=== PATIENT | male | born 1935 | race Caucasian/White ===

== ENCOUNTER 2020-11-04 14:57 | Emergency (ER) | payer OTHER ==
[~2020-11-04] VITALS: Ht 177.8 cm; Wt 120.2 kg
--- NOTE | 2020-11-04 11:55 | NUR ---
CARDIOPULMONARY ARREST Laura RODRIGUEZ AND Torito ALVARENGA POWERHOUSE MECHANIC'S ATTENDING
[~2020-11-04 14:57] MED LIST: CALCIUM CHLORIDE 10% 100 MG/ML SYR IVP ONE; EPINEPHrine PFS 0.1 MG/ML SYR IVP ONE; FLUC150T PO; NITR100C1 PO; POTA10TE30 PO; RIVA20TA PO
--- NOTE | 2020-11-04 14:57 | NUR ---
1454---Patient BIBLoc ALS accompanied by [facility] with CPR in progress, transferred to bed 10. CPR continued by [facility] staff. Dr. Bear, RT, and RN are at bedside.
--- NOTE | 2020-11-04 15:20 | NUR ---
85/M BIBA IN CARDIAC ARREST. PER EMS, PATIENT WAS FOUND ON SCENE LYING ON THE GROUND NEXT TO HIS TV WITH AGONAL RESPIRATIONS, STATED PATIENTS HEART RATE BEGAN TO RANDALL DOWN IN WHICH THEY BEGAN TO PACE THE PATIENT AND SHORTLY AFTER PULSES WERE LOST. EMS STATED PATIENT REPORTED NOT FEELING WELL TO FAMILY THIS MORNING AND VOMITED TWICE PRIOR TO EMS ARRIVAL. PATIENT REMAINED PULSELESS UPON ARRIVAL, WAS NOT INTUBATED, IO TO LEFT LOWER LEG WITH IV FLUIDS RUNNING. EMS GAVE TWO ROUNDS OF EPI PRIOR TO ARRIVAL, PATIENT ARRIVED ASYSTOLE. SEE CODE SHEET FOR DETAILS. TIME OF 15:[address] LEE.
--- NOTE | 2020-11-04 15:26 | NUR ---
CALLED [facility], SPOKE TO DISPATCH TO REPORT . AWAITING CALL BACK FROM [facility].
--- NOTE | 2020-11-04 15:43 | NUR ---
CALLED [facility] TO REPORT PATIENT S/W SIMI. PATIENT IS NOT A CANDIDATE FOR [employer] REFERRAL ID #[id number]
--- NOTE | 2020-11-04 15:50 | NUR ---
SPOKE TO JULIO C FROM THE CORONERS OFFICE, NOTIFIED HER ABOUT PATIENTS . STATED SHE WILL BE CALLING BACK IN 30 MINUTES TO ASK IF ANY FAMILY HAS CALLED.
--- NOTE | 2020-11-04 16:00 | NUR ---
ATTEMPTED TO CALL SON MELANY MAYA JR. . NO ANSWER, VOICEMAIL LEFT.
--- NOTE | 2020-11-04 16:13 | NUR ---
RECEIVED CALL BACK FROM JULIO C AT CORONERS OFFICE, NOTIFIED HER WE ATTEMPTED TO CONTACT PATIENTS SON AND LEFT MESSAGE, NUMBER WAS GIVEN. PER JULIO C PATIENT IS CLEARED, CASE #[id number]
--- NOTE | 2020-11-04 16:25 | NUR ---
RECEIVED UPDATED PHONE NUMBER FOR PATIENTS SON FROM CORONERS OFFICE ZULMA MOSLEY JR.
--- NOTE | 2020-11-04 16:27 | NUR ---
PT'S SON ZULMA MELANY ALMAZAN CALLED BACK AND SPOKE WITH DR. LEE. SON NOTIFIED ABOUT PT'S PASSING.
--- NOTE | 2020-11-04 16:28 | NUR ---
SPOKE TO PATIENT'S SON AND PREVIOUS MORTURARY ARRANGEMENTS HAVE BEEN MADE. ARRANGEMENTS MADE AT [facility] IN [place]. ALL QUESTIONS ANSWERED PRIOR TO HANGING UP WITH SON.
--- NOTE | 2020-11-04 16:31 | NUR ---
CONTACTED [facility] AND WAS INSTRUCTED TO PLACE THE PATIENT IN THE [place] AND CALL BACK DURING BUSINESS HOURS. SHE STATED THEY WOULD BE OPEN TOMORROW FROM [phone] AND FRIDAY - FRIDAY [phone].
--- NOTE | 2020-11-04 17:18 | NUR ---
ALL TUBES AND IV'S REMOVED AND PATIENT PLACED IN BODY BAG WITH PROPER IDENTIFICATION TAGS. PATIENT TAKEN TO [facility], ACCOMPANIED BY MYSELF, RK RN, AND DEVIN EMT. CODE SHEET IS UPDATED, CODE SHEET AND CHART LEFT WITH COMMUNITY DEVELOPMENT MANAGER.
== END 2020-11-04 15:13 ==
LOC: MED 14:57
DX: I46.9 Cardiac arrest, cause unspecified (principal); E11.9 Type 2 diabetes mellitus without complications; I10 Essential (primary) hypertension
CPT/HCPCS: 31500; 92950; 99285; J0171